=== PATIENT | male | born 1975 | race Caucasian/White ===

== ENCOUNTER 2017-09-24 00:16 | Emergency (ER) | payer SELFPAY ==
[~2017-09-24] VITALS: Ht 170.1 cm; Wt 86.2 kg
[~2017-09-24 00:16] MED LIST: BENTYL10 MG PO; CIPRO500 MG PO; HYDROCODONE BIT1 T11 PO; ULTRAM50 MG PO
[2017-09-24] MEDS ORDERED: AVPAK AZITHROM250 M1 PO (01:40)
== END 2017-09-24 02:32 | disposition home or self-care (01) ==
LOC: ED 00:16
DX: G43.909 Migraine, unspecified, not intractable, without status migrainosus (principal); J06.9 Acute upper respiratory infection, unspecified; R10.84 Generalized abdominal pain; Z88.0 Allergy status to penicillin; Z88.8 Allergy status to other drugs, medicaments and biological substances

== ENCOUNTER 2025-04-03 00:09 | Emergency (ER) | payer MEDICAID ==
[~2025-04-03] VITALS: Ht 160 cm; Wt 77.1 kg
[~2025-04-03 00:09] MED LIST changes: +AVPAK AZITHROM250 M1 PO
[2025-04-03] MEDS ORDERED: Tdap Vaccine 0.5 ML SYR (Adult Vaccine) IM ONE (00:25)
[2025-04-03] MEDS ORDERED: Lidocaine Hydrochloride 2% 10 ML AMP SC ONE (01:45)
== END 2025-04-03 02:14 | disposition home or self-care (01) ==
LOC: ED 00:09
DX: S71.111A Laceration without foreign body, right thigh, initial encounter (principal); I10 Essential (primary) hypertension; Z79.899 Other long term (current) drug therapy; Z88.0 Allergy status to penicillin; Z88.1 Allergy status to other antibiotic agents; Z88.6 Allergy status to analgesic agent; W26.0XXA Contact with knife, initial encounter; Y93.89 Activity, other specified; Y92.89 Other specified places as the place of occurrence of the external cause; Y99.8 Other external cause status